=== PATIENT | male | born 1990 | race Caucasian/White ===

== ENCOUNTER 2016-11-15 19:47 | Emergency (ER) | payer BC, MEDICAID ==
--- NOTE | 2016-11-15 20:29 | UC ---
General HPI - HPI Summary HPI Summary: patient has had 4 days for fever, head congestion, increasing SOB and cough. today fever was 103, responded well to tylenol. - History of Current Complaint Chief Complaint: UCRespiratory Stated Complaint: FEVER/COUGH/SINUS Time Seen by Provider: 11/15/16 20:15 Hx Obtained From: Patient Onset/Duration: Sudden Onset, Lasting Days Timing: Constant Onset Severity: Mild Current Severity: Severe Pain Intensity: 8 Associated Signs & Symptoms: Positive: Cough, Chest Pain, Decreased Oral Intake , Fever, Headache, SOB, Wheezing - Allergy/Home Medications Allergies/Adverse Reactions: Allergies Allergy/AdvReac Type Severity Reaction Status Date / Time Cefprozil [From Cefzil] Allergy Intermediate Hives Verified 11/15/16 20:12 Home Medications: Home Medications GuaiFENesin DM* [Robitussin DM*] 10 ml PO Q6H PRN 11/15/16 [History Confirmed ] [id number] [Mucinex Sinus-Max Day/] 20 ml PO BID [History Confirmed 11/15/16] PMH/Surg Hx/FS Hx/Imm Hx Previously Healthy: Yes Endocrine History Of: Reports: Thyroid Disease Denies: Diabetes Cardiovascular History Of: Denies: Cardiac Disorders Respiratory History Of: Denies: Asthma - Surgical History Surgical History: Yes Surgery Procedure, Year, and Place: appy - Family History Known Family History: Positive: Hypertension - Social History Alcohol Use: None Substance Use Type: None Smoking Status (MU): Never Smoked Tobacco - Immunization History Most Recent Influenza Vaccination: 2016 Review of Systems Constitutional: Fever, Chills, Fatigue Skin: Negative Eyes: Negative ENT: Sore Throat, Ear Ache, Nasal Discharge Respiratory: Shortness Of Breath, Cough Cardiovascular: Negative Gastrointestinal: Negative Genitourinary: Negative Motor: Negative Neurovascular: Negative Musculoskeletal: Negative Neurological: Negative Psychological: Negative All Other Systems Reviewed And Are Negative: Yes Physical Exam Triage Information Reviewed: Yes Appearance: Well-Nourished, Ill-Appearing, Pain Distress Vital Signs: Initial Vital Signs Temp 99.4 F 11/15/16 20:14 Pulse 109 11/15/16 20:14 Resp 20 11/15/16 20:14 BP 153/77 11/15/16 20:14 Pulse Ox 99 11/15/16 20:14 Vital Signs Reviewed: Yes Eye Exam: Normal Eyes: Positive: Conjunctiva Clear ENT: Positive: Pharyngeal erythema, Nasal congestion, Nasal drainage, Tonsillar swelling, Tonsillar exudate, Other: - right TM purulent drainage noted Dental Exam: Normal Neck: Positive: Supple, Nontender, No Lymphadenopathy Respiratory: Positive: No respiratory distress, No accessory muscle use, Decreased breath sounds - hard for patient to take a deep breath, Crackles - RLL Cardiovascular: Positive: No Murmur, Pulses Normal, Tachycardia Abdomen Description: Positive: Nontender, No Organomegaly, Soft Bowel Sounds: Positive: Present Musculoskeletal Exam: Normal Musculoskeletal: Positive: Strength Intact, ROM Intact, No Edema Neurological Exam: Normal Neurological: Positive: Alert, Muscle Tone Normal Psychological Exam: Normal Psychological: Positive: Normal Response To Family, Age Appropriate Behavior Skin Exam: Normal Course/Dx - Course Course Of Treatment: hx obtianed, medications reviewed, exam performed, chest xray ordered neg for acute disease, had tylenol prior to arrival, RIght otitis media is noted, treated for URI and otitis media - Differential Dx - Multi-Symptom Provider Diagnoses: URI. otitis media right. fever Discharge - Discharge Plan Condition: Stable Disposition: HOME Patient Education Materials: Upper Respiratory Infection (ED) Additional Instructions: Take the medications as prescribed. Get plenty of rest and increase your fluid intake. continue with advil or tylenol for pain and fever. The inhaler can be used every 4 hours for Shortness of breath of cough. Follow up with any worsening symptoms.
[2016-11-15 20:34] VITALS: BP 153/77
--- NOTE | 2016-11-15 20:58 | RAD ---
INDICATION: Short of breath. Fever. Cough COMPARISON: None TECHNIQUE: PA and lateral views were obtained. FINDINGS: Bones/Soft Tissues: There are no acute bony findings. Cardiomediastinal: The cardiomediastinal silhouette is normal. Lungs: There are no infiltrates. Pleura: There are no pleural effusions. Other: None IMPRESSION: NORMAL CHEST
[2016-11-15] MEDS ORDERED: Albuterol HFA INHALER* 8 gm MDI INH ONE (21:01)
[2016-11-15] MEDS ORDERED: Amoxicillin/Clavulanate TAB* 875 MG PO ONE (21:02)
== END 2016-11-15 21:21 | disposition home or self-care (01) ==
LOC: UCCORT 19:47
DX: J06.9 Acute upper respiratory infection, unspecified (principal); H66.91 Otitis media, unspecified, right ear; R50.9 Fever, unspecified; Z88.1 Allergy status to other antibiotic agents
CPT/HCPCS: 71020; 99212; A9270-GY; G0463

== ENCOUNTER 2018-05-10 12:08 | Emergency (ER) | payer BC ==
[2018-05-10 12:28] VITALS: BP 100/65
--- NOTE | 2018-05-10 12:34 | UC ---
Lower Extremity/Ankle HPI - HPI Summary HPI Summary: Patient rolled his left ankle and foot 2 days ago while at camp. He has ongoing pain. He notes the pain is to the outside of his ankle plus his mother notes some questionable swelling to the inside of his foot. His mother notes he is having trouble walking due to the pain. They deny any other injuries offer no other complaints. - History of Current Complaint Stated Complaint: LFT ANKLE INJURY Time Seen by Provider: 05/10/18 12:23 Hx Obtained From: Patient, Family/Zinc Etcher Onset/Duration: Sudden Onset Aggravating Factor(s): Standing, Ambulation Alleviating Factor(s): Rest Able to Bear Weight: No - Allergies/Home Medications Allergies/Adverse Reactions: Allergies Allergy/AdvReac Type Severity Reaction Status Date / Time cefprozil [From Cefzil] Allergy Hives Verified 05/10/18 12:25 Home Medications: Home Medications Acetaminophen TAB* [Tylenol TAB*] 650 mg PO Q4H PRN 05/10/18 [History Confirmed 05/10/18] PMH/Surg Hx/FS Hx/Imm Hx - Additional Past Medical History 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 - Surgical History Surgical History: Yes Surgery Procedure, Year, and Place: appy - Family History Known Family History: Positive: Hypertension - Social History Occupation: Student Lives: With Family Alcohol Use: None Substance Use Type: None Smoking Status (MU): Never Smoked Tobacco - Immunization History Most Recent Influenza Vaccination: 2016 Vaccination Up to Date: Yes Review of Systems Constitutional: Negative Skin: Negative Eyes: Negative ENT: Negative Respiratory: Negative Cardiovascular: Negative Gastrointestinal: Negative Genitourinary: Negative Motor: Negative Neurovascular: Negative Musculoskeletal: Other: - pain L ankle/foot Neurological: Negative Psychological: Negative Is Patient Immunocompromised?: No All Other Systems Reviewed And Are Negative: Yes Physical Exam Triage Information Reviewed: Yes Appearance: Well-Appearing Vital Signs Reviewed: Yes Eyes: Positive: Conjunctiva Clear ENT: Positive: Normal ENT inspection Neck: Positive: Supple, Nontender Respiratory: Positive: Lungs clear, Normal breath sounds Cardiovascular: Positive: RRR, No Murmur Abdomen Description: Positive: Nontender, No Organomegaly, Soft Bowel Sounds: Positive: Present Musculoskeletal: Positive: Other: - LLE: Hip, knee and Achilles are atraumatic. Tenderness palpation to the lateral ankle. Foot has flattening of the arch and questionable swelling to the medial foot but no obvious tenderness. Gross sensorivascular motor function is intact to his toes Neurological: Positive: Alert Psychological: Positive: Normal Response To Family Skin Exam: Normal Diagnostics - Radiology No standard instances Radiology Interpretation Completed By: Radiologist - L ankle foot=ankle sts and joint effusion but no fx. Lower Extremity Course/Dx - Course Course Of Treatment: no fx or dislocation - Differential Dx/Diagnosis Provider Diagnoses: Sprain L ankle/foot Discharge - Sign-Out/Discharge Documenting (check all that apply): Discharge/Admit/Transfer - Discharge Plan Condition: Stable Disposition: HOME Patient Education Materials: Ankle Sprain (DC), Foot Sprain (ED) Referrals: Rogerio Gatica MD [Primary Care Provider] - If Needed Jacob Galan MD [Medical Doctor] - 7 Days - Billing Disposition and Condition Condition: STABLE Disposition: Home
--- NOTE | 2018-05-10 12:56 | RAD ---
HISTORY: pain post twist, left foot and ankle injury COMPARISONS: None VIEWS: 6, Frontal, lateral, and oblique views of the left foot and left ankle FINDINGS: BONE DENSITY: Normal. BONES: There is no displaced fracture. JOINTS: There is a left ankle joint effusion. ALIGNMENT: There is no dislocation. SOFT TISSUES: There is circumferential soft tissue swelling. OTHER FINDINGS: None. IMPRESSION: LEFT ANKLE JOINT EFFUSION WITH SOFT TISSUE SWELLING. NO ACUTE OSSEOUS INJURY TO THE LEFT FOOT OR LEFT ANKLE. IF SYMPTOMS PERSIST, RECOMMEND REPEAT IMAGING.
== END 2018-05-10 13:25 | disposition home or self-care (01) ==
LOC: UCCORT 12:08
DX: S93.402A Sprain of unspecified ligament of left ankle, initial encounter (principal); S93.602A Unspecified sprain of left foot, initial encounter; Z88.1 Allergy status to other antibiotic agents; X50.9XXA Other and unspecified overexertion or strenuous movements or postures, initial encounter; Y92.9 Unspecified place or not applicable
CPT/HCPCS: 99212; G0463